=== PATIENT | male | born 1960 | race Caucasian/White ===

== ENCOUNTER 2022-03-10 14:22 | Emergency (ER) | payer OTHER ==
[2022-03-10] MEDS ORDERED: DIPHTH,PERTUSS(ACELL),TET 0.5 ML DISP.SYRIN IM ONE ×2 (14:31→15:19)
[2022-03-10] MEDS ORDERED: LIDOCAINE 2%/EPINEPHRINE 1:100000 (50 ML MD VIAL) INF ONE (14:31)
[2022-03-10] MEDS ORDERED: ACETAMINOPHEN 500 MG TABLET (FP) PO ONE (14:32)
[2022-03-10 14:41] VITALS: BP 177/94; PULSE 87; RESP 20; TEMP 98.1; BMI 24.1
[2022-03-10] MEDS ORDERED: LIDOCAINE 1%/EPI 1:100000 (20 ML MULTI DOSE VIAL) ONE (15:03)
[2022-03-10] MEDS ORDERED: ACETAMINOPHEN 500 MG TABLET (FP) ONE (15:19)
== END 2022-03-10 15:27 | disposition home or self-care (01) ==
LOC: JER 14:22 → JERFT 14:22
PROC: 0HQ0XZZ Repair Scalp Skin, External Approach (ICD-10-PCS; principal; 2022-03-10)
PROC: 3E0234Z Introduction of Serum, Toxoid and Vaccine into Muscle, Percutaneous Approach (ICD-10-PCS; 2022-03-10)
DX: S01.01XA Laceration without foreign body of scalp, initial encounter (principal); W25.XXXA Contact with sharp glass, initial encounter
CPT/HCPCS: 12002-25; 90471; 90715; 99283-25

== ENCOUNTER 2022-03-19 11:29 | Emergency (ER) | payer OTHER ==
[2022-03-19 11:34] VITALS: BP 175/87; PULSE 98; RESP 18; TEMP 98.4; BMI 24.1
[2022-03-19] MEDS ORDERED: OXYMETAZOLINE 0.05% NASAL SOLUTION 15 ML BOTTLE NS ONE (12:03)
[2022-03-19] MEDS ORDERED: BACITRACIN 15 GM TUBE TOPICAL OINTMENT ONE (14:01)
== END 2022-03-19 12:21 | disposition home or self-care (01) ==
LOC: JER 11:29
DX: S01.01XA Laceration without foreign body of scalp, initial encounter (principal); Y99.9 Unspecified external cause status; Z48.02 Encounter for removal of sutures
CPT/HCPCS: 99281-25